=== PATIENT | male | born 1955 | race Hispanic/Latino ===

== ENCOUNTER 2017-06-09 20:41 | Observation (INO) | payer MEDICARE ==
--- NOTE | 2017-06-09 21:35 | ED PDOC ---
HPI:STROKE - Notes: Notes:: Eliecer Murray is a 61 year old male with a history of multiple TIAs, high cholesterol, and hypertension that presents to the ED with a chief complaint of right upper extremity weakness that began about two hours ago when he was at [facility] [employer]. Patient states that he noticed his arm felt weak and heavy, and that it feels similar to what he has experienced during prior TIAs. He denies any leg weakness, headache, vision changes, chest pain, or shortness of breath. NIHSS Stroke Scale - Date/Time Evaluation Performed Date Performed: 06/09/17 - How Severe is the Stroke Level of Consciousness: 0=Alert LOC to Questions: 0=Both comments correct LOC to commands: 0=Obeys both correctly Best Gaze: 0=Normal Visual: 0=No visual loss Facial: 0=Normal Motor Arm - Left: 0=No drift Motor Arm - Right: 0=No drift Motor Leg - Left: 0=No drift Motor Leg - Right: 0=No drift Limb Ataxia: 0=Absent Sensory: 1=Mild to moderate loss Best Language: 0=No aphasia Dysarthia: 0=Normal articulation Extinction & Inattention (Neglect): 0=Normal, no object Score: 1 rTPA Inclusion/Exclusion - Refusal of Treatment Patient Refused Treatment: No - Inclusion Criteria for Altepase Patient is 18 years or Older: Yes The Clinical Diagnosis of Ischemic Stroke That is Causing a Potentially Disabling Neurological Deficit: No Time of Onset is Well Established to be Less Than 270 Minute Before Treatment Would Begin: Yes Risk/Benefit Discussed With Patient/Family Member Present: Yes - Warning to TPA With Conditions Condition: Stroke Serevity Too Mild Past Medical History Reviewed: Historical Data, Nursing Documentation, Vital Signs Vital Signs: Last Vital Signs Temp 98.0 F 06/09/17 20:58 Pulse 82 06/09/17 20:58 Resp 16 06/09/17 20:58 BP 156/81 H 06/09/17 20:58 Pulse Ox 100 06/09/17 20:58 - Medical History PMH: HTN, Hypercholesterolemia, TIA (multiple) - Family History Family History: States: Unknown Family Hx - Allergies Allergies/Adverse Reactions: Allergies Allergy/AdvReac Type Severity Reaction Status Date / Time iodine Allergy ANAPHYLAXIS Verified 06/09/17 20:58 latex Allergy RASH Verified 06/09/17 20:58 contrast media Allergy ANAPHYLAXIS Uncoded 06/09/17 20:58 Review of Systems Eyes: Negative for: Vision Change Cardiovascular: Negative for: Chest Pain Respiratory: Negative for: Shortness of Breath Neurological: Positive for: Weakness (right arm feels weak and heavy). Negative for: Headache Physical Exam - Reviewed Nursing Documentation Reviewed: Yes Vital Signs Reviewed: Yes - Physical Exam Appears: Positive for: Non-toxic, No Acute Distress Head Exam: Positive for: ATRAUMATIC, NORMOCEPHALIC Skin: Positive for: Normal Color, Warm Eye Exam: Positive for: Normal appearance, EOMI, PERRL Cardiovascular/Chest: Positive for: Regular Rate, Rhythm. Negative for: Murmur Respiratory: Positive for: Normal Breath Sounds. Negative for: Wheezing Neurologic/Psych: Positive for: Alert, practice professional II-XII, Oriented, Motor/Sensory Deficits (5/5 strength in all extremities. Sensation is slightly diminished in right upper extremity when compared to the left. ), Cerebellar Tests (Patient performed well), Gait (Steady). Negative for: Aphasia, Facial Droop - ECG O2 Sat by Pulse Oximetry: 100 (RA) Pulse Ox Interpretation: Normal - Critical Care Total Time (In Min): 60 Medical Decision Making Medical Decision Making: Impression: r/o TIA vs. Nerve Impingement Plan: * CT Head w/o Contrast * EKG * Type and Screen * Chest X-Ray * Hemoglobin A1C * CBC * PTT * PT * Lipid Panel * Troponin I * Reevaluation EKG shows NSR at 79 bpm, Q wave in anterior leads. 950PM:IMPRESSION of CT Head: Streak artifact limits evaluation of the skull base. No evidence of acute intracranial hemorrhage. CT can miss an acute nonhemorrhagic CVA. It should be noted that acute strokes may be initially radiologically occult on CT. If the patient is having persistent stroke like symptomatology, then MRI may be beneficial. Spoke with Dr. Uriostegui who agrees with management. Notified Dr. Lane who is on consult for neurology. Will admit to Tele. Scribe Attestation: Documented by Mayda Madrigal, acting as a scribe for Tony Nolen MD. Provider Scribe Attestation: All medical record entries made by the Scribe were at my direction and personally dictated by me. I have reviewed the chart and agree that the record accurately reflects my personal performance of the history, physical exam, medical decision making, and the department course for this patient. I have also personally directed, reviewed, and agree with the discharge instructions and disposition. Disposition - Clinical Impression Clinical Impression: TIA (transient ischemic attack), Right arm weakness - Disposition Disposition Time: 22:00 Condition: STABLE Forms: [employer] ([place]in)
[2017-06-09 21:53] LABS: BASO # 0.1 K/uL (0.0-0.2); BASO % 0.8 % (0.0-2.0); EOS # 0.3 K/uL (0.0-0.7); EOS % 3.1 % (0.0-4.0); HEMATOCRIT 42.5 % (35.0-51.0); LYMPH # 2.8 K/uL (1.0-4.3); LYMPH % 33.6 % (20.0-40.0); MEAN CELL VOLUME 88.7 fl (80.0-94.0); MEAN PLATELET VOLUME 7.5 fl (7.2-11.7); MONO # 0.8 K/uL (0.0-0.8); MONO % 10.1 % (0.0-10.0); NEUT # 4.4 K/uL (1.8-7.0); NEUT % 52.4 % (50.0-75.0); NRBC % 0.1 % (0.0-0.0); RED CELL DISTRIBUTION WIDTH 13.9 % (11.5-14.5); WHITE BLOOD COUNT 8.4 K/uL (4.8-10.8)
[2017-06-09 22:03] LABS: ALB/GLOB RATIO 1.4 (1.0-2.1); ALKALINE PHOSPHATASE 52 U/L (38-126); ALT/SGPT 47 U/L (21-72); AST/SGOT 45 U/L (17-59); BILIRUBIN,TOTAL 0.5 mg/dl (0.2-1.3); BLOOD UREA NITROGEN 19 mg/dl (9-20); CALCIUM 9.5 mg/dL (8.4-10.2); CARBON DIOXIDE 25 mmol/L (22-30); CHLORIDE 103 mmol/L (98-107); CHOLESTEROL 258 mg/dL (0-199); GFR AFRICAN-AMERICAN > 60; GLUCOSE,RANDOM 114 mg/dL (75-110); POTASSIUM 4.3 MMOL/L (3.6-5.0); SODIUM 141 mmol/l (132-148)
[2017-06-09 22:46] LABS: PARTIAL THROMBOPLASTIN TIME 41.5 Seconds (25.6-37.1)
[2017-06-10] MEDS ORDERED: Pneumococcal 23-Valent Vaccine IM ONE (08:00)
--- NOTE | 2017-06-10 08:11 | CARD ---
APPROVED REPORT EKG Measurement Heart [id number] <Conclusion> Normal sinus rhythm Rightward axis Borderline ECG
--- NOTE | 2017-06-10 08:34 | CT ---
PROCEDURE: CT HEAD WITHOUT CONTRAST. HISTORY: code stroke COMPARISON: None available. TECHNIQUE: Axial computed tomography images were obtained through the head/brain without intravenous contrast. Coronal and sagittal reconstructed images. Radiation dose: Total exam DLP = 865.94 mGy-cm. This CT exam was performed using one or more of the following dose reduction techniques: Automated exposure control, adjustment of the mA and/or kV according to patient size, and/or use of iterative reconstruction technique. FINDINGS: HEMORRHAGE: No intracranial hemorrhage. BRAIN: No mass effect or edema. No atrophy or chronic microvascular ischemic changes. VENTRICLES: Unremarkable. No hydrocephalus. CALVARIUM: Unremarkable. PARANASAL SINUSES: Mild chronic primarily ethmoid air cell disease MASTOID AIR CELLS: Unremarkable as visualized. No inflammatory changes. OTHER FINDINGS: None. IMPRESSION: No acute intracranial abnormalities. No significant findings to account for the clinical presentation. Code stroke protocol: Study completed 21:40 Results conveyed verbally at 21:48 Interpretation finalized and available for review 08:32. June 10, 2017.
[2017-06-10] MEDS ORDERED: Pantoprazole 40 mg EC Tab PO SCH (09:00)
[2017-06-10] MEDS ORDERED: Insulin Detemir 100 Units/ml Inj SC SCH ×2 (09:00→22:00)
[2017-06-10] MEDS ORDERED: OMEGA ACID ETHYL ESTERS PO SCH (09:00)
[2017-06-10] MEDS ORDERED: Tiotropium 18 mcg Cap For Inhalation INH SCH (09:00)
[2017-06-10] MEDS ORDERED: Albuterol HFA 90 mcg/actuation (8 g) INH PRN (09:00)
[2017-06-10] MEDS ORDERED: Patient's Own Med (Losartan/Hydrochlorothiazide [Losartan-Hctz 100-25 Mg Tab] 1 TAB) PO SCH (09:00)
--- NOTE | 2017-06-10 11:32 | US ---
PROCEDURE: Duplex ultrasound of the carotid and vertebral arteries. HISTORY: ASSESS STENOSIS COMPARISON: None available. TECHNIQUE: Grayscale and duplex Doppler evaluation of the cervical carotid and vertebral arteries were performed. The common carotid, carotid bifurcations and cervical ICA and proximal ECA were evaluated. The vertebral arteries were evaluated for gross patency and direction. FINDINGS: RIGHT CAROTID ARTERIES: Common Carotid Artery: Heterogeneous plaque formation. Maximal flow velocity of 76.8 cm/s. Carotid Bifurcation: Heterogeneous plaque formation. Internal Carotid Artery:Heterogeneous plaque formation. Maximal flow velocity of 101.6 cm/s. External Carotid Artery (proximal branches): Normal. Maximal flow velocity of 169.6 cm/s. ICA/CCA Ratio: 1.9 LEFT CAROTID ARTERIES: Common Carotid Artery: Normal. Maximal flow velocity of 101.4 cm/s. Carotid Bifurcation: Heterogeneous plaque formation. Internal Carotid Artery:Heterogeneous plaque formation. Maximal flow velocity of 91.9 cm/s. External Carotid Artery (proximal branches): Normal. Maximal flow velocity of 108.6 cm/s. ICA/CCA Ratio: 1.2 VERTEBRAL ARTERIES: Right Vertebral Artery: Patent. Antegrade flow. Left Vertebral Artery: Patent. Antegrade flow. OTHER FINDINGS: None. IMPRESSION: Right ICA degree of stenosis: Less than 50% Left ICA degree of stenosis: Less than 50% Reference Internal Carotid Artery (ICA) Peak Systolic Velocity (PSV) for above: 1. Less than 50% stenosis less than 125 cm/s peak systolic velocity 2. 50-69% stenosis 125-230cm/s peak systolic velocity 3. Greater than 70% but less than near occlusion greater than 230 cm/s peak systolic velocity
[2017-06-10 12:31] VITALS: RESP 13; TEMP 97.9; O2SAT 100
--- NOTE | 2017-06-10 13:07 | MRI ---
PROCEDURE: MRI BRAIN WITHOUT CONTRAST HISTORY: STROKE COMPARISON: Head CT without contrast 06/09/2017. TECHNIQUE: Multiplanar, multisequence MR images of the brain were obtained without intravenous contrast enhancement. FINDINGS: HEMORRHAGE: None DWI: No evidence of an acute or early subacute infarction. BRAIN PARENCHYMA: Mild diffuse cerebral atrophy is reiterated with minimal white matter changes compatible chronic microangiopathy involving the cerebrum. There is no mass effect or suspicious extra-axial fluid collection appreciated. The midline brain anatomy appears grossly nonfocal although the right side of the corpus callosum somewhat undulating with remainder unremarkable. The craniocervical junction appears intact. VENTRICLES: Unremarkable. No hydrocephalus. CRANIUM: Unremarkable. ORBITS: Grossly unremarkable. PARANASAL SINUSES/MASTOIDS: Limited bilateral mastoid effusions are identified. Moderate left maxillary sinus disease identified. VASCULAR SYSTEM: Skull base flow voids intact. OTHER FINDINGS: None. IMPRESSION: 1. No definitive acute intracranial findings are identified up over below the tentorium as per above. 2. Limited diffuse cerebral atrophy is reiterated. Trace chronic microangiopathy is identified.
--- NOTE | 2017-06-10 13:16 | RAD ---
HISTORY: RUE weakness COMPARISON: None. Eighty FINDINGS: LUNGS: No active pulmonary disease. PLEURA: No significant pleural effusion identified, no pneumothorax apparent. CARDIOVASCULAR: No radiographic findings to suggest acute or significant cardiovascular disease. OSSEOUS STRUCTURES: No significant abnormalities. VISUALIZED UPPER ABDOMEN: Normal. OTHER FINDINGS: None. IMPRESSION: No active disease.
[2017-06-10] MEDS: Omega-3-Acid Ethyl Esters 1 GM Cap PO SCH ×2 (13:45→17:54)
[2017-06-10 13:46] VITALS: BP 150/89; PULSE 77
--- NOTE | 2017-06-10 14:59 | CP.PCM.HP ---
History of Present Illness - History of Present Illness History of Present Illness: Eliecer Murray is a 61 year old male with a history of previous TIAs, high cholesterol, and hypertension that presents to the ED with a chief complaint of right upper extremity weakness that began about two hours ago when he was at the [employer]. Patient states that he noticed his arm felt weak and heavy, and that it feels similar to what he has experienced during prior TIAs. He denies any leg weakness, headache, vision changes, chest pain, or shortness of breath. At present conformable no deficit. Present on Admission - Present on Admission Any Indicators Present on Admission: No Review of Systems - Constitutional Constitutional: As Per HPI - EENT Eyes: As Per HPI - Cardiovascular Cardiovascular: As Per HPI - Respiratory Respiratory: As Per HPI - Gastrointestinal Gastrointestinal: As Per HPI - Neurological Neurological: As Per HPI - Psychiatric Psychiatric: As Per HPI Past Patient History - Past Medical History & Family History Past Medical History?: Yes - Past Social History Smoking Status: Never Smoked - CARDIAC Hx Cardiac Disorders: Yes - PULMONARY Hx Respiratory Disorders: Yes - NEUROLOGICAL Hx Neurological Disorder: Yes - HEENT Hx HEENT Problems: No - RENAL Hx Chronic Kidney Disease: No - ENDOCRINE/METABOLIC Hx Endocrine Disorders: Yes - HEMATOLOGICAL/ONCOLOGICAL Hx Blood Disorders: No - INTEGUMENTARY Hx Dermatological Problems: No - MUSCULOSKELETAL/RHEUMATOLOGICAL Hx Musculoskeletal Disorders: Yes - GASTROINTESTINAL Hx Colitis: Yes Hx Gastritis: Yes Hx Gastroesophageal Reflux: Yes Hx Liver Failure: Yes - GENITOURINARY/GYNECOLOGICAL Hx Genitourinary Disorders: No - PSYCHIATRIC Hx Psychophysiologic Disorder: Yes - SURGICAL HISTORY Hx Cardiac Catheterization: Yes Other/Comment: 2004-rupture hernia,stesticle surgery,groin hernia then repeated it again . polyps removed intestine - ANESTHESIA Hx Anesthesia: Yes Hx Anesthesia Reactions: No Hx Malignant Hyperthermia: No Has any member of the family had a problem w/ anesthesia?: No Meds Allergies/Adverse Reactions: Allergies Allergy/AdvReac Type Severity Reaction Status Date / Time iodine Allergy ANAPHYLAXIS Verified 06/09/17 20:58 latex Allergy RASH Verified 06/09/17 20:58 contrast media Allergy ANAPHYLAXIS Uncoded 06/09/17 20:58 Physical Exam - Constitutional Appears: Non-toxic - Head Exam Head Exam: ATRAUMATIC, NORMAL INSPECTION, NORMOCEPHALIC - Eye Exam Eye Exam: Normal appearance - ENT Exam ENT Exam: Mucous Membranes Moist - Neck Exam Neck exam: Positive for: Full Rom - Respiratory Exam Respiratory Exam: Clear to Auscultation Bilateral - Cardiovascular Exam Cardiovascular Exam: REGULAR RHYTHM, +S1, +S2 - GI/Abdominal Exam GI & Abdominal Exam: Normal Bowel Sounds, Soft - Neurological Exam Neurological exam: Alert, CN II-XII Intact, Oriented x3 - Psychiatric Exam Psychiatric exam: Normal Affect - Skin Skin Exam: Normal Color Results - Vital Signs Recent Vital Signs: Last Vital Signs Temp 97.9 F 06/10/17 12:00 Pulse 77 06/10/17 13:44 Resp 13 06/10/17 12:00 BP 150/89 06/10/17 13:44 Pulse Ox 100 06/10/17 12:00 - Labs Result Diagrams: 06/09/17 21:49 06/09/17 21:35 Labs: Laboratory Results - last 24 hr 06/09/17 06/09/17 06/09/17 21:35 21:35 21:35 WBC RBC Hgb Hct MCV MCH MCHC RDW Plt Count MPV Neut % (Auto) Lymph % (Auto) [place] % (Auto) Eos % (Auto) Baso % (Auto) Neut # Lymph # [place] # Eos # Baso # ESR PT INR APTT Sodium 141 Potassium 4.3 Chloride 103 Carbon Dioxide 25 Anion Gap 17 BUN 19 Creatinine 1.1 Est GFR ( Amer) > 60 Est GFR (Non-Af Amer) > 60 POC Glucose (mg/dL) Random Glucose 114 H Hemoglobin A1c 8.3 H Calcium 9.5 Total Bilirubin 0.5 AST 45 ALT 47 Alkaline Phosphatase 52 Troponin I < 0.0120 Total Protein 8.0 Albumin 4.7 Globulin 3.4 Albumin/Globulin Ratio 1.4 Triglycerides 827 H Cholesterol 258 H LDL Cholesterol Direct 84 HDL Cholesterol 32 TSH 3rd Generation Blood Type A POSITIVE Antibody Screen Negative BBK History Checked No verified bt 06/09/17 06/09/17 06/10/17 21:49 22:30 04:55 WBC 8.4 RBC 4.80 Hgb 14.9 Hct 42.5 MCV 88.7 MCH 31.0 MCHC 35.0 RDW 13.9 Plt Count 275 MPV 7.5 Neut % (Auto) 52.4 Lymph % (Auto) 33.6 [place] % (Auto) 10.1 H Eos % (Auto) 3.1 Baso % (Auto) 0.8 Neut # 4.4 Lymph # 2.8 [place] # 0.8 Eos # 0.3 Baso # 0.1 ESR PT 13.8 H INR 1.3 H APTT 41.5 H Sodium Potassium Chloride Carbon Dioxide Anion Gap BUN Creatinine Est GFR ( Amer) Est GFR (Non-Af Amer) POC Glucose (mg/dL) 87 Random Glucose Hemoglobin A1c Calcium Total Bilirubin AST ALT Alkaline Phosphatase Troponin I Total Protein Albumin Globulin Albumin/Globulin Ratio Triglycerides Cholesterol LDL Cholesterol Direct HDL Cholesterol TSH 3rd Generation Blood Type Antibody Screen BBK History Checked 06/10/17 06/10/17 06/10/17 06:47 07:50 12:26 WBC RBC Hgb Hct MCV MCH MCHC RDW Plt Count MPV Neut % (Auto) Lymph % (Auto) [place] % (Auto) Eos % (Auto) Baso % (Auto) Neut # Lymph # [place] # Eos # Baso # ESR 31 H PT INR APTT Sodium Potassium Chloride Carbon Dioxide Anion Gap BUN Creatinine Est GFR ( Amer) Est GFR (Non-Af Amer) POC Glucose (mg/dL) 225 H Random Glucose Hemoglobin A1c Calcium Total Bilirubin AST ALT Alkaline Phosphatase Troponin I Total Protein Albumin Globulin Albumin/Globulin Ratio Triglycerides Cholesterol LDL Cholesterol Direct HDL Cholesterol TSH 3rd Generation 1.44 Blood Type Antibody Screen BBK History Checked Assessment & Plan (1) CAD (coronary artery disease) Status: Chronic (2) Diabetes 1.5, managed as type 2 Status: Chronic (3) Hypertensive cardiovascular disease Status: Acute (4) Obesity (BMI 35.0-39.9 without comorbidity) Status: Chronic (5) Hypercholesteremia Status: Chronic (6) TIA (transient ischemic attack) Status: Acute - Assessment and Plan (Free Text) Plan: Will follow neuro consult. Continue present rx.
--- NOTE | 2017-06-10 16:41 | CARD ---
APPROVED REPORT EXAM: Two-dimensional and M-mode echocardiogram with Doppler and color Doppler. Other Information Quality : [employer] : NSR INDICATION CVA/TIA 2D DIMENSIONS IVSd1.18 (0.7-1.1cm)LVDd4.51 (3.9-5.9cm) LVOT Diameter2.07 (1.8-2.4cm)PWd0.78 (0.7-1.1cm) IVSs1.44 (0.8-1.2cm)LVDs3.02 (2.5-4.0cm) FS (%) 32.9 %PWs1.39 (0.8-1.2cm) M-Mode DIMENSIONS Left Atrium (MM)3.97 (2.5-4.0cm)IVSd0.91 (0.7-1.1cm) Aortic Root3.38 (2.2-3.7cm)LVDd6.16 (4.0-5.6cm) Aortic Cusp Exc.1.94 (1.5-2.0cm)PWd1.03 (0.7-1.1cm) IVSs1.84 cmFS (%) 47 % LVDs3.25 (2.0-3.8cm)PWs1.63 cm Mitral Valve MV E Txwfknlo75.0cm/sMV DECEL [id number] A Tzpbkhij74.6cm/s MV [id number]/A ratio1.2MVA (PHT)3.45cm2 TDI Lateral E' Peak V8.80cm/sMedial E' Peak V7.58cm/sE/Lateral E'7.4 E/Medial E'8.6 Pulmonary Valve PV Peak Wtnxemtv529.4cm/s LEFT VENTRICLE The left ventricle is normal size. There is normal left ventricular wall thickness. The left ventricular function is normal. The left ventricular ejection fraction is within the normal range. The Ejection Fraction is 65-70%. There is normal LV segmental wall motion. The left ventricular diastolic function is normal. No left ventricle thrombus noted on this study. There is no mass noted in the left ventricle. RIGHT VENTRICLE The right ventricle is normal size. There is normal right ventricular wall thickness. The right ventricular systolic function is normal. ATRIA The left atrium size is normal. The right atrium size is normal. The interatrial septum is intact with no evidence for an atrial septal defect. AORTIC VALVE The aortic valve is normal in structure and function. No aortic regurgitation is present. There is no aortic valvular stenosis. There is no aortic valvular vegetation. MITRAL VALVE The mitral valve is normal in structure and function. There is no evidence of mitral valve prolapse. There is no mitral valve stenosis. There is no mitral valve regurgitation noted. TRICUSPID VALVE The tricuspid valve is normal in structure and function. There is no tricuspid valve regurgitation noted. There is no tricuspid valve prolapse or vegetation. There is no tricuspid valve stenosis. PULMONIC VALVE The pulmonary valve is normal in structure and function. There is no pulmonic valvular regurgitation. There is no pulmonic valvular stenosis. GREAT VESSELS The aortic root is normal in size. The IVC is normal in size and collapses >50% with inspiration. PERICARDIAL EFFUSION The pericardium appears normal. There is no pleural effusion. <Conclusion> The left ventricle is normal size. The left ventricular function is normal. The left ventricular ejection fraction is within the normal range. The Ejection Fraction is 65-70%.
--- NOTE | 2017-06-10 17:38 | CP.PCM.CON ---
History of Present Illness - History of Present Illness History of Present Illness: consult dictated CERVICAL RAADIUCLOPATHY EEG : THIERNO SLOW CONTINUE THE SAME D/C FOLLOW UP FOR EMG AND AMBULATORY VIDEO EEG. Past Patient History - Past Medical History & Family History Past Medical History?: Yes - Past Social History Smoking Status: Never Smoked - CARDIAC Hx Cardiac Disorders: Yes - PULMONARY Hx Respiratory Disorders: Yes - NEUROLOGICAL Hx Neurological Disorder: Yes - HEENT Hx HEENT Problems: No - RENAL Hx Chronic Kidney Disease: No - ENDOCRINE/METABOLIC Hx Endocrine Disorders: Yes - HEMATOLOGICAL/ONCOLOGICAL Hx Blood Disorders: No - INTEGUMENTARY Hx Dermatological Problems: No - MUSCULOSKELETAL/RHEUMATOLOGICAL Hx Musculoskeletal Disorders: Yes - GASTROINTESTINAL Hx Colitis: Yes Hx Gastritis: Yes Hx Gastroesophageal Reflux: Yes Hx Liver Failure: Yes - GENITOURINARY/GYNECOLOGICAL Hx Genitourinary Disorders: No - PSYCHIATRIC Hx Psychophysiologic Disorder: Yes - SURGICAL HISTORY Hx Cardiac Catheterization: Yes Other/Comment: 2004-rupture hernia,stesticle surgery,groin hernia then repeated it again . polyps removed intestine - ANESTHESIA Hx Anesthesia: Yes Hx Anesthesia Reactions: No Hx Malignant Hyperthermia: No Has any member of the family had a problem w/ anesthesia?: No Meds Home Medications: Home Medication List Medication Instructions Recorded Confirmed Type Aspirin [Ecotrin] 81 mg PO DAILY tabec 06/10/17 Rx Losartan [Cozaar] 100 mg PO DAILY tab 06/10/17 Rx Rivaroxaban [Xarelto] 20 mg PO DAILY tab 06/10/17 Rx hydroCHLOROthiazide [Hydrodiuril] 25 mg PO DAILY tab 06/10/17 Rx Allergies/Adverse Reactions: Allergies Allergy/AdvReac Type Severity Reaction Status Date / Time iodine Allergy ANAPHYLAXIS Verified 06/09/17 20:58 latex Allergy RASH Verified 06/09/17 20:58 contrast media Allergy ANAPHYLAXIS Uncoded 06/09/17 20:58 - Medications Medications: Current Medications Albuterol (Ventolin Hfa 90 Mcg/Actuation (8 G)) 2 puff INH Q6 PRN PRN Reason: Shortness of Breath Allopurinol (Zyloprim) 300 mg PO DAILY [facility] Last Admin: 06/10/17 13:45 Dose: 300 mg Amitriptyline HCl (Elavil) 50 mg PO HS LAMAR Aspirin (Ecotrin) 81 mg PO DAILY [facility] Last Admin: 06/10/17 13:44 Dose: 81 mg Atorvastatin Calcium (Lipitor) 10 mg PO DAILY [facility] Last Admin: 06/10/17 13:45 Dose: 10 mg Glipizide (Glucotrol) 10 mg PO BID [facility] Last Admin: 06/10/17 13:45 Dose: 10 mg Hydrochlorothiazide (Hydrodiuril) 25 mg PO DAILY [facility] Last Admin: 06/10/17 13:44 Dose: 25 mg Insulin Detemir (Levemir) 65 units SC [facility] Losartan Potassium (Cozaar) 100 mg PO DAILY [facility] Last Admin: 06/10/17 13:44 Dose: 100 mg Metoprolol Tartrate (Lopressor) 50 mg PO DAILY [facility] Last Admin: 06/10/17 13:45 Dose: 50 mg Montelukast Sodium (Singulair) 10 mg PO DAILY [facility] Last Admin: 06/10/17 13:46 Dose: 10 mg Cnmpz-7-Remg Ethyl Esters (Lovaza) 1 gm PO BID [facility] Last Admin: 06/10/17 13:45 Dose: 1 gm Pantoprazole Sodium (Protonix Ec Tab) 40 mg PO DAILY [facility] Last Admin: 06/10/17 13:46 Dose: 40 mg Rivaroxaban (Xarelto) 20 mg PO DAILY [facility] PRN Reason: Protocol Last Admin: 06/10/17 13:45 Dose: 20 mg Tiotropium [place] (Spiriva) 18 mcg INH DAILY [facility] Last Admin: 06/10/17 13:46 Dose: 18 mcg Results - Vital Signs Recent Vital Signs: Last Vital Signs Temp 97.9 F 06/10/17 12:00 Pulse 77 06/10/17 13:44 Resp 13 06/10/17 12:00 BP 150/89 06/10/17 13:44 Pulse Ox 100 06/10/17 12:00 - Labs Result Diagrams: 06/09/17 21:49 06/09/17 21:35 Labs: Laboratory Results - last 24 hr 06/09/17 06/09/17 06/09/17 21:35 21:35 21:35 WBC RBC Hgb Hct MCV MCH MCHC RDW Plt Count MPV Neut % (Auto) Lymph % (Auto) [place] % (Auto) Eos % (Auto) Baso % (Auto) Neut # Lymph # [place] # Eos # Baso # ESR PT INR APTT Sodium 141 Potassium 4.3 Chloride 103 Carbon Dioxide 25 Anion Gap 17 BUN 19 Creatinine 1.1 Est GFR ( Amer) > 60 Est GFR (Non-Af Amer) > 60 POC Glucose (mg/dL) Random Glucose 114 H Hemoglobin A1c 8.3 H Calcium 9.5 Total Bilirubin 0.5 AST 45 ALT 47 Alkaline Phosphatase 52 Troponin I < 0.0120 Total Protein 8.0 Albumin 4.7 Globulin 3.4 Albumin/Globulin Ratio 1.4 Triglycerides 827 H Cholesterol 258 H LDL Cholesterol Direct 84 HDL Cholesterol 32 TSH 3rd Generation Blood Type A POSITIVE Antibody Screen Negative BBK History Checked No verified bt 06/09/17 06/09/17 06/10/17 21:49 22:30 04:55 WBC 8.4 RBC 4.80 Hgb 14.9 Hct 42.5 MCV 88.7 MCH 31.0 MCHC 35.0 RDW 13.9 Plt Count 275 MPV 7.5 Neut % (Auto) 52.4 Lymph % (Auto) 33.6 [place] % (Auto) 10.1 H Eos % (Auto) 3.1 Baso % (Auto) 0.8 Neut # 4.4 Lymph # 2.8 [place] # 0.8 Eos # 0.3 Baso # 0.1 ESR PT 13.8 H INR 1.3 H APTT 41.5 H Sodium Potassium Chloride Carbon Dioxide Anion Gap BUN Creatinine Est GFR ( Amer) Est GFR (Non-Af Amer) POC Glucose (mg/dL) 87 Random Glucose Hemoglobin A1c Calcium Total Bilirubin AST ALT Alkaline Phosphatase Troponin I Total Protein Albumin Globulin Albumin/Globulin Ratio Triglycerides Cholesterol LDL Cholesterol Direct HDL Cholesterol TSH 3rd Generation Blood Type Antibody Screen BBK History Checked 06/10/17 06/10/17 06/10/17 06:47 07:50 12:26 WBC RBC Hgb Hct MCV MCH MCHC RDW Plt Count MPV Neut % (Auto) Lymph % (Auto) [place] % (Auto) Eos % (Auto) Baso % (Auto) Neut # Lymph # [place] # Eos # Baso # ESR 31 H PT INR APTT Sodium Potassium Chloride Carbon Dioxide Anion Gap BUN Creatinine Est GFR ( Amer) Est GFR (Non-Af Amer) POC Glucose (mg/dL) 225 H Random Glucose Hemoglobin A1c Calcium Total Bilirubin AST ALT Alkaline Phosphatase Troponin I Total Protein Albumin Globulin Albumin/Globulin Ratio Triglycerides Cholesterol LDL Cholesterol Direct HDL Cholesterol TSH 3rd Generation 1.44 Blood Type Antibody Screen BBK History Checked 06/10/17 15:46 WBC RBC Hgb Hct MCV MCH MCHC RDW Plt Count MPV Neut % (Auto) Lymph % (Auto) [place] % (Auto) Eos % (Auto) Baso % (Auto) Neut # Lymph # [place] # Eos # Baso # ESR PT INR APTT Sodium Potassium Chloride Carbon Dioxide Anion Gap BUN Creatinine Est GFR ( Amer) Est GFR (Non-Af Amer) POC Glucose (mg/dL) 274 H Random Glucose Hemoglobin A1c Calcium Total Bilirubin AST ALT Alkaline Phosphatase Troponin I Total Protein Albumin Globulin Albumin/Globulin Ratio Triglycerides Cholesterol LDL Cholesterol Direct HDL Cholesterol TSH 3rd Generation Blood Type Antibody Screen BBK History Checked
--- NOTE | 2017-06-11 05:10 | CON ---
DATE: 06/10/2017 ATTENTION PHYSICIAN: Lauro Uriostegui MD LOCATION: Room number ICU, bed 34. REASON FOR THE CONSULTATION: Transient ischemic attack. CHIEF COMPLAINT: The patient was brought in to [facility] with history of focal weakness of his left arm and right arm. From neurologic point of view, I was called into evaluate him for further management. HISTORY OF PRESENT ILLNESS: The patient is a 61-year-old right-handed male in usual state of health. He went to [facility]. During shopping, he felt perspiration profusely. With that, he finished his shopping and he came home. After reaching home, he has abruptly started to feel right arm weakness. This weakness is more pronounced, numbness than weakness. Some pain over his wrist as well as the elbow. Since he had transient ischemic attack in the past, he would like to come to the hospital to check himself. This episode is not associating with headache, visual or bulbar dysfunction. No history of focal weakness, no history of involuntary movement. No history of chest pain, shortness of breath associating with this problem. PAST MEDICAL HISTORY: Hypertension, dyslipidemia, TIAs, and atrial fibrillation. He also had injury to the neck more than 15 years ago. He was told that he had a herniated disc. PERSONAL HISTORY: Denies smoking, alcohol use. FAMILY HISTORY: Unremarkable. REVIEW OF SYSTEMS: A 16-point review of systems have been reviewed. From neuro, focal weakness and numbness of his right arm. PHYSICAL EXAMINATION: VITAL SIGNS: Blood pressure 156/98, mean arterial pressure of 117, respiratory rate is 16, and temperature is afebrile. NECK: Supple. No carotid bruits. HEART: S1 and S2 regular. CHEST: Fair air entry. EXTREMITIES: No edema in legs. NEUROLOGIC/MENTAL STATUS EXAMINATION: He is awake, alert, oriented to person, place and time. Speech is clear. Naming, repetition, fluency, comprehension all within normal. CRANIAL NERVE EXAMINATION: Visual field is intact. Pupils reactive to light. Extraocular movement normal. No nystagmus. No facial sensory deficit. No facial asymmetry. Hearing is normal. Tongue is midline and good gag. MOTOR EXAMINATION: Outstretched hand with eyes closed, no drift is noted. Power is symmetric on either side. No tremor on outstretched hand. No fasciculation at rest. DEEP TENDON REFLEXES: Biceps, brachialis, and triceps are trace. Both knees are trace. Both ankles are absent. Plantars are downgoing. SENSORY EXAMINATION: Subjective numbness over C6 and C7 dermatomes on both sides. CERVICAL SPINE: Mild tenderness and spasm over paratrapezius muscle groups and paraspinal muscle groups. WORKUP: CT of the head has been reviewed and MRI of the brain have been reviewed. No acute pathology is noted. Carotid Doppler, no significant stenosis. Electroencephalogram was reviewed. No acute paroxysmal activities or focal slowing noted. He had generalized slow activities noted in the electroencephalogram. Concerning his age, the patient is symptomatic. The patient should have extensive ambulatory electroencephalogram which can be done as outpatient. CONCLUSION: Upon reviewing his history and neurological examination, the patient has been presenting with focal numbness of his right arm with known history of chronic degenerative disk disease in his neck, probably cervical radiculopathy. The current examination does not show any long tract signs. He has history of ischemic process. RECOMMENDATION: 1. Weight control, diabetic control has been discussed with him. 2. The patient definitely needs ambulatory electroencephalogram program, which can be done as outpatient. 3. Electromyography and the nerve conduction study should be done to rule out any radiculopathy or radiculoplexopathy. The patient's condition has been discussed with him as well as Dr. Uriostegui. The patient will be followed as outpatient. Ronal Lane MD
--- NOTE | 2017-06-11 08:27 | EEG ---
This is a 16-channel electroencephalogram of awake and drowsy adult. During the study, photic stimulation was performed. Hyperventilation was not performed. The resting electroencephalogram begin with low amplitude 20 to 30 microvolts, diffuse delta mixed with low theta activities noted in parietal and occipital leads. Anteriorly, fast activity superimposed with 2 to 3 hertz delta activity seen. The photic stimulation did not evoke driving response noted at 2 to 20 hertz. IMPRESSION: This is an abnormal electroencephalogram because of persistent slowing for his age suggestive of bilateral cerebral dysfunction. This is probably secondary to metabolic vascular degenerative process. Please correlate the finding with the neurological and radiological studies. Ronal Lane MD
== END 2017-06-10 18:00 | disposition home or self-care (01) ==
LOC: H.ER 20:41 → H.ERHOLD 21:55 → H.ICU/CCU 06-10 00:51
PROVIDERS: ADMIT Internal Medicine; ATTEND Internal Medicine
DX: R20.0 Anesthesia of skin (principal); M50.30 Other cervical disc degeneration, unspecified cervical region; I25.10 Atherosclerotic heart disease of native coronary artery without angina pectoris; I11.9 Hypertensive heart disease without heart failure; I48.91 Unspecified atrial fibrillation; E11.9 Type 2 diabetes mellitus without complications; E78.00 Pure hypercholesterolemia, unspecified; E78.5 Hyperlipidemia, unspecified; E66.9 Obesity, unspecified; Z68.37 Body mass index [BMI] 37.0-37.9, adult; Z86.73 Personal history of transient ischemic attack (TIA), and cerebral infarction without residual deficits; Z91.040 Latex allergy status; Z91.041 Radiographic dye allergy status; Z79.82 Long term (current) use of aspirin; Z79.01 Long term (current) use of anticoagulants; Z23 Encounter for immunization
CPT/HCPCS: 70450; 70551; 71010; 80053; 80061; 82948; 83036; 84443; 84484; 85025; 85610; 85651; 85730; 86592; 86850; 86900; 87081; 90732; 93005; 93306; 93880; 95816; 96374; 99282; G0009; G0378; J1885

== ENCOUNTER 2018-05-08 01:14 | Emergency (ER) | payer MEDICARE ==
[2018-05-08 01:14] VITALS: BMI 37.5
[2018-05-08 02:56] LABS: BASO # 0.1 K/uL (0.0-0.2); BASO % 0.9 % (0.0-2.0); EOS # 0.3 K/uL (0.0-0.7); EOS % 3.5 % (0.0-4.0); LYMPH # 2.3 K/uL (1.0-4.3); LYMPH % 31.5 % (20.0-40.0); MEAN CELL VOLUME 89.2 fl (80.0-94.0); MEAN CORPUSCULAR HEMOGLOBIN 32.2 pg (27.0-31.0); MEAN CORPUSCULAR HGB CONC 36.1 g/dL (33.0-37.0); MEAN PLATELET VOLUME 8.1 fl (7.2-11.7); MONO # 0.7 K/uL (0.0-0.8); NEUT % 54.1 % (50.0-75.0); NRBC % 0.2 % (0.0-0.0); RBC 4.34 Mil/uL (4.40-5.90); RED CELL DISTRIBUTION WIDTH 13.6 % (11.5-14.5); WHITE BLOOD COUNT 7.5 K/uL (4.8-10.8)
[2018-05-08 03:05] LABS: ALB/GLOB RATIO 1.2 (1.0-2.1); ALT/SGPT 37 U/L (21-72); AST/SGOT 32 U/L (17-59); BLOOD UREA NITROGEN 18 mg/dl (9-20); CALCIUM 9.4 mg/dL (8.4-10.2); GFR AFRICAN-AMERICAN > 60; GFR NON-AFRICAN AMERICAN 56
[2018-05-08 03:12] LABS: INR 1.1; PROTHROMBIN TIME 12.6 Seconds (9.8-13.1)
[2018-05-08 03:15] LABS: PARTIAL THROMBOPLASTIN TIME 39.3 Seconds (25.6-37.1)
[2018-05-08] MEDS ORDERED: Insulin Regular 100 units/ml IV STA (03:18)
--- NOTE | 2018-05-08 03:20 | ED PDOC ---
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 Patient was admitted to [facility] and diagnosed with AFib. At that time he was treated with Xarelto and Metoprolo. Per patient diagnostic cardiac catheterization was normal and after x3 days he was released; patient was feeling fine until symptoms began today. He dnies cough, fever, orthopnea, dizziness, vision changes, or headache. He states he is compliant with his medications. PMD: Jailene (Samaria Santacruz) Past Medical History Reviewed: Historical Data, Nursing Documentation, Vital Signs - Medical History PMH: Atrial Fibrillation, CAD, Cardia Arrhythmia, COPD, Depression, Emphysema ( interstitial fibrosis), Fractures, Gastritis, HTN, Hypercholesterolemia, Hyperlipidemia, TIA Denies: Chronic Kidney Disease - Surgical History Surgical History: Hernia Repair (multiple) Other surgeries: Sinus procedure - Family History Family History: States: Unknown Family Hx <Samaria Santacruz - Last Filed: 05/08/18 05:59> <Tony Nolen - Last Filed: 05/08/18 06:49> Vital Signs: Last Vital Signs Temp 98.3 F 05/08/18 01:31 Pulse 106 H 05/08/18 04:56 Resp 16 05/08/18 01:31 BP 139/65 05/08/18 04:56 Pulse Ox 96 05/08/18 06:02 - Home Medications Home Medications: Ambulatory Orders Medication Instructions Recorded Albuterol Sulfate [Proair Hfa] 2 inh INH PRN PRN 06/09/17 Allopurinol [Zyloprim] 300 mg PO DAILY 06/09/17 Amitriptyline [Elavil] 50 mg PO HS 06/09/17 Evolocumab [Repatha Sureclick] 140 mg INJ DAILY 06/09/17 GlipiZIDE [Glucotrol] 10 mg PO BID 06/09/17 Insulin Glargine,Hum.rec.anlog 70 unit INJ HS 06/09/17 [Lantus Solostar] Losartan/Hydrochlorothiazide 1 tab PO DAILY 06/09/17 [Losartan-Hctz 100-25 mg Tab] Metoprolol Tartrate [Lopressor] 100 mg PO HS 06/09/17 Montelukast [Singulair] 10 mg PO HS 06/09/17 Qfrya-6-Lifh Ethyl Esters [OMEGA 3] 1,000 mg PO QID 06/09/17 Omeprazole 40 mg PO DAILY 06/09/17 Tiotropium [place] Inhaler 2.5 mcg INH DAILY 06/09/17 [Spiriva Inhalation Handihaler Device] Aspirin [Ecotrin] 81 mg PO DAILY tabec 06/10/17 Garlic 1,000 mg PO TID 06/10/17 Insulin Aspart, Recombinant 3 unit SC AC 06/10/17 [Novolog] Losartan [Cozaar] 100 mg PO DAILY tab 06/10/17 Mv,Martell,Min/Iron/Folic Acid/Lut 1 tab PO DAILY 06/10/17 [Complete Multi Tablet] Rivaroxaban [Xarelto] 20 mg PO DAILY tab 06/10/17 Ubidecarenone [Coq-10] 400 mg PO TID 06/10/17 Ferrous Sulfate 325 mg PO DAILY 04/27/18 Ventolin HFA 90 mcg/actuation (8 g) 90 mcg IH BID 04/27/18 Victoza 3-Jeff[place] 1.2 mg SQ DAILY 04/27/18 Vitamin D 1000 IU 50,000 units PO DAILY 04/27/18 Furosemide [Lasix] 20 mg PO DAILY 30 Days #30 [facility] [place] 04/29/18 - Allergies Allergies/Adverse Reactions: Allergies Allergy/AdvReac Type Severity Reaction Status Date / Time iodine Allergy ANAPHYLAXIS Verified 04/27/18 16:44 latex Allergy RASH Verified 04/27/18 16:44 contrast media Allergy ANAPHYLAXIS Uncoded 04/27/18 16:44 Review of Systems ROS Statement: Except As Marked, All Systems Reviewed And Found Negative Constitutional: Negative for: Fever Eyes: Negative for: Vision Change Cardiovascular: Positive for: Chest Pain, Palpitations. Negative for: Orthopnea Respiratory: Positive for: Shortness of Breath. Negative for: Cough Neurological: Negative for: Headache, Dizziness <Samaria Santacruz - Last Filed: 05/08/18 05:59> Physical Exam - Reviewed Nursing Documentation Reviewed: Yes Vital Signs Reviewed: Yes <Samaria Santacruz - Last Filed: 05/08/18 05:59> <Tony Nolen - Last Filed: 05/08/18 06:49> - Physical Exam Comments: GENERAL APPEARANCE: Patient is resting comfortably and in no acute distress. SKIN: Warm, dry; (-) cyanosis. EYES: (-) conjunctival pallor. ENMT: Mucous membranes moist. NECK: (-) tenderness, (-) stiffness, (-) lymphadenopathy, (-) JVD. CHEST AND RESPIRATORY: (-) chest wall tenderness. Lungs: (-) rales, (-) rhonchi, (-) wheezes, (-) rub; breath sounds equal bilaterally HEART AND CARDIOVASCULAR: (+) tachycardia ABDOMEN AND GI: Soft; (-) distention, (-) tenderness, (-) palpable pulsatile mass. EXTREMITIES: (-) deformity; (-) edema, (-) calf tenderness. (+) distal pulses. NEURO AND PSYCH: Mental status as above. Cranial nerves grossly intact; strength symmetric. (Samaria Santacruz) - Laboratory Results Result Diagrams: 05/08/18 02:27 05/08/18 02:27 - ECG O2 Sat by Pulse Oximetry: 96 (RA) Pulse Ox Interpretation: Normal <Samaria Santacruz - Last Filed: 05/08/18 05:59> - Laboratory Results Result Diagrams: 05/08/18 02:27 05/08/18 02:27 <Tony Nolen - Last Filed: 05/08/18 06:49> Medical Decision Making <Samaria Santacruz - Last Filed: 05/08/18 05:59> <Tony Nolen - Last Filed: 05/08/18 06:49> Medical Decision Making: Time: 01:45 Impression: Tachycardia, shortness of breath, r/o ischemic heart injury Initial Plan: --Alcohol serum --BNP --CMP --Drug screen --Troponin I --CBC w/ diff --PTT --Prothrombin time --Chest x-ray 0125 EKG: ST @ 104 (+)occasional PAC, QTc 444 (-) ST elevation 0315 Hyperglycemia noted on CMP. 8 united Insulin IV ordered. CBC unremarkable. 0230 CXR: (-) infiltrate (-) pneumothorax (-) effusion Patient notified a Radiologist will review the ED reading if any change in treatment is needed we will contact him 0400 Utox: Negative Serum Alcohol < 10 Troponin <0.01 BNP: 62.2 Patient with persistent tachycardia and hypertensive readings in ED. Lopressor 5mg IVP ordered. Case discussed with ED MD Nolen, who recommends repeat troponin at [address] Uriostegui. On exam, patient remains AAOx3, in no acute distress. Lungs clear to auscultation, cardiac RRR, abdomen soft, non-tender, repeat neuro exam shows no focal findings. 0555 Repeat Accucheck: [address] Uriostegui who states that if second troponin is negative, patient can follow up outpatient with himself and cardiology. 0600 Continuation of care per Dr Nolen. Scribe Attestation: Documented by Cayden Mendez, acting as a scribe for Samaria Santacruz PA-C. Provider Scribe Attestation: All medical record entries made by the Scribe were at my direction and personally dictated by me. I have reviewed the chart and agree that the record accurately reflects my personal performance of the history, physical exam, medical decision making, and the department course for this patient. I have also personally directed, reviewed, and agree with the discharge (Samaria Santacruz) Endorsed to Dr. Tafoya at 7AM pending second troponin. (Tony Nolen) Disposition <Samaria Santacruz - Last Filed: 05/08/18 05:59> - Patient ED Disposition Is Patient to be Admitted: Transfer of Care - Disposition Disposition: Transfer of Care Disposition Time: 07:00 Patient Signed Over To: Jim Tafoya Handoff Comments: pending 2nd troponin <Tony Nolen - Last Filed: 05/08/18 06:49> - Clinical Impression Clinical Impression: Chest pain - Disposition Referrals: Lauro Uriostegui MD [Staff Provider] - Condition: STABLE Additional Instructions: Please followup immediately with Dr. 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 Instructions: Chest Pain Forms: [employer] (Uzbek) - Lab Results Lab Results: 05/08/18 05/08/18 05/08/18 05:55 02:30 02:27 WBC RBC Hgb Hct MCV MCH MCHC RDW Plt Count MPV Neut % (Auto) Lymph % (Auto) [place] % (Auto) Eos % (Auto) Baso % (Auto) Neut # (Auto) Lymph # (Auto) [place] # (Auto) Eos # (Auto) Baso # (Auto) PT 12.6 INR 1.1 APTT 39.3 H Sodium Potassium Chloride Carbon Dioxide Anion Gap BUN Creatinine Est GFR ( Amer) Est GFR (Non-Af Amer) POC Glucose (mg/dL) 347 H Random Glucose Calcium Total Bilirubin AST ALT Alkaline Phosphatase Troponin I NT-Pro-B Natriuret Pep Total Protein Albumin Globulin Albumin/Globulin Ratio Urine Opiates Screen Negative Urine Methadone Screen Negative Ur Barbiturates Screen Negative Ur Phencyclidine Scrn Negative Ur Amphetamines Screen Negative U Benzodiazepines Scrn Negative U Oth Cocaine Metabols Negative U Cannabinoids Screen Negative Alcohol, Quantitative 05/08/18 05/08/18 02:27 02:27 WBC 7.5 RBC 4.34 L Hgb 14.0 Hct 38.7 MCV 89.2 MCH 32.2 H MCHC 36.1 RDW 13.6 Plt Count 263 MPV 8.1 Neut % (Auto) 54.1 Lymph % (Auto) 31.5 [place] % (Auto) 10.0 Eos % (Auto) 3.5 Baso % (Auto) 0.9 Neut # (Auto) 4.0 Lymph # (Auto) 2.3 [place] # (Auto) 0.7 Eos # (Auto) 0.3 Baso # (Auto) 0.1 PT INR APTT Sodium 137 Potassium 3.9 Chloride 98 Carbon Dioxide 27 Anion Gap 16 BUN 18 Creatinine 1.3 Est GFR ( Amer) > 60 Est GFR (Non-Af Amer) 56 POC Glucose (mg/dL) Random Glucose 389 H Calcium 9.4 Total Bilirubin 0.7 AST 32 ALT 37 Alkaline Phosphatase 67 Troponin I 0.0140 NT-Pro-B Natriuret Pep 62.2 Total Protein 7.4 Albumin 4.0 Globulin 3.4 Albumin/Globulin Ratio 1.2 Urine Opiates Screen Urine Methadone Screen Ur Barbiturates Screen Ur Phencyclidine Scrn Ur Amphetamines Screen U Benzodiazepines Scrn U Oth Cocaine Metabols U Cannabinoids Screen Alcohol, Quantitative < 10
[2018-05-08 03:23] LABS: B-TYPE NATRIURETIC PEPTIDE 62.2 pg/ml (0-900)
[2018-05-08 03:29] LABS: BARBITURATES, UR NEGATIVE (NEGATIVE); BENZODIAZEPINES, UR NEGATIVE (NEGATIVE); OPIATES, UR NEGATIVE (NEGATIVE); PHENCYCLIDINE, UR NEGATIVE (NEGATIVE)
[2018-05-08] MEDS ORDERED: Metoprolol 1 mg/ml Inj IVP ONE ×2 (04:15→04:39)
[2018-05-08 07:42] VITALS: BP 133/65; PULSE 88; RESP 18; TEMP 98.6; O2SAT 98
--- NOTE | 2018-05-08 09:43 | RAD ---
Date of service: 05/08/2018 HISTORY: chest pain COMPARISON: 06/09/2017 TECHNIQUE: Chest PA and lateral FINDINGS: LUNGS: No active pulmonary disease. PLEURA: No significant pleural effusion identified. No pneumothorax apparent. CARDIOVASCULAR: Normal. OSSEOUS STRUCTURES: No significant abnormalities. VISUALIZED UPPER ABDOMEN: Normal. OTHER FINDINGS: None. IMPRESSION: No active disease.
== END 2018-05-08 07:54 | disposition home or self-care (01) ==
LOC: H.ER 01:14
DX: R07.89 Other chest pain (principal); E78.00 Pure hypercholesterolemia, unspecified; F32.9 Major depressive disorder, single episode, unspecified; I10 Essential (primary) hypertension; I25.10 Atherosclerotic heart disease of native coronary artery without angina pectoris; Z79.4 Long term (current) use of insulin; Z86.73 Personal history of transient ischemic attack (TIA), and cerebral infarction without residual deficits
CPT/HCPCS: 71046; 80053; 82948; 83880; 84484; 85025; 85610; 85730; 99284; G0480